=== PATIENT | male | born 1970 | race Two or more races ===

== ENCOUNTER 2020-04-05 05:45 | Day surgery (SDC) | payer OTHER ==
[~2020-04-05 05:45] MED LIST: PRAVASTATIN SOD10 MG PO; TOPROL XL25 M1 PO
[2020-04-05] MEDS ORDERED: TYLENOL ARTHRI650 MG PO (09:21)
[2020-04-05] MEDS ORDERED: NEURONTIN300 MG PO (09:21)
[2020-04-05] MEDS ORDERED: ULTRAM50 MG PO (09:21)
[2020-04-05] MEDS ORDERED: MIRALAX17 GM PO (09:21)
== END 2020-04-05 17:30 | disposition home or self-care (01) ==
LOC: CIR.AMB 05:45
PROVIDERS: ATTEND Surgery
DX: K40.90 Unilateral inguinal hernia, without obstruction or gangrene, not specified as recurrent (principal); K42.9 Umbilical hernia without obstruction or gangrene